=== PATIENT | female | born 1995 | race Caucasian/White ===

== ENCOUNTER → 2016-09-08 | Outpatient (CLI) | payer OTHER ==
--- NOTE | 2016-09-08 13:58 | DIAGNOSTIC IMAGING REPORT ---
RIGHT KNEE 4 OR MORE CLINICAL HISTORY: Right knee pain following fall. COMPARISON: Right knee radiographs October 14, 2015 and MRI of the right knee December 17, 2015. FINDINGS: Alignment of the right knee is anatomic. There is no acute fracture. No joint effusion is identified. Joint spaces are preserved. IMPRESSION: No acute fracture. Electronically signed by: Sudhir Hinton M.D. 09/08/2016 1:56 PM Dictated Date/Time: 09/08/2016 1:55 PM
== END | disposition home or self-care (01) ==
LOC: C.RDSM 14:57
PROVIDERS: ATTEND Family Medicine
DX: M25.561 Pain in right knee (principal); W19.XXXA Unspecified fall, initial encounter

== ENCOUNTER → 2016-10-23 | Outpatient (CLI) | payer OTHER ==
--- NOTE | 2016-10-23 11:04 | DIAGNOSTIC IMAGING REPORT ---
RIGHT KNEE 4 OR MORE CLINICAL HISTORY: Right knee pain COMPARISON: 09/08/2016 DISCUSSION: No fractures are visualized. There are no erosive or destructive changes. There is no evidence of pathologic periostitis. There is no evidence of joint effusion. IMPRESSION: No significant bony abnormalities. Electronically signed by: Bryant Plata M.D. 10/23/2016 11:03 AM Dictated Date/Time: 10/23/2016 11:02 AM
== END | disposition home or self-care (01) ==
LOC: C.RDSM 09:10
PROVIDERS: ATTEND Family Medicine
DX: M25.561 Pain in right knee (principal)

== ENCOUNTER → 2016-10-25 | Outpatient (CLI) | payer OTHER ==
--- NOTE | 2016-10-25 19:50 | DIAGNOSTIC IMAGING REPORT ---
MRI OF THE RIGHT KNEE WITHOUT CONTRAST CLINICAL HISTORY: Anterior right knee pain following injury. COMPARISON STUDY: MRI of the right knee December 17, 2015 and right knee radiographs October 23, 2016. TECHNIQUE: Utilizing a 1.5 Verenice magnet and dedicated coil, multiplanar, multiecho imaging of the right knee was performed without intravenous or intraarticular contrast. FINDINGS: Alignment of the right knee is anatomic. Extensor mechanism is intact. There is no joint effusion. Note is made of moderate edema within the lateral aspect of the patella and mild edema within the medial aspect of the patella. No fracture is identified. No additional sites of marrow edema are present. The cruciate and collateral ligaments are intact. No meniscal tear is identified. No mass or fluid collection is shown adjacent to the right knee. No cartilage abnormalities are identified. IMPRESSION: 1. Intact cruciate and collateral ligaments. 2. Moderate marrow edema within the lateral aspect of the patella and mild marrow edema within the medial aspect of the patella. While nonspecific, bone bruises are favored. 3. No meniscal tear. 4. No joint effusion. Electronically signed by: Sudhir Hinton M.D. 10/25/2016 7:49 PM Dictated Date/Time: 10/25/2016 7:42 PM
== END | disposition home or self-care (01) ==
LOC: C.MRI 17:35
PROVIDERS: ATTEND Family Medicine
DX: M25.561 Pain in right knee (principal)